=== PATIENT | female | born 1990 | race Hispanic/Latino ===

== ENCOUNTER 2017-04-07 16:33 | Emergency (ER) | payer MEDICAID, OTHER | END 2017-04-07 19:38 | disposition home or self-care (01) | LOC: EDH 16:33 | DX: R07.89 Other chest pain (principal); T50.995A Adverse effect of other drugs, medicaments and biological substances, initial encounter; Y92.89 Other specified places as the place of occurrence of the external cause | CPT/HCPCS: 71045; 81025; 82948; 93005 ==

== ENCOUNTER 2018-01-17 09:01 | Emergency (ER) | payer MEDICAID, OTHER ==
[2018-01-17 10:00] LABS: APPEARANCE,URINE Clear (CLEAR); BILIRUBIN,URINE Negative (NEGATIVE); COLOR,URINE Yellow (YELLOW); GLUCOSE, URINE (UA) Negative (NEGATIVE); KETONES,URINE Negative (NEGATIVE); LEUKOCYTE ESTERASE ,URINE Negative (NEGATIVE); NITRATE,URINE Negative (NEGATIVE); OCCULT BLOOD,URINE Moderate (NEGATIVE); PH,URINE 5.5 (5.0-8.0); PROTEIN,URINE Negative (NEGATIVE); UROBILINOGEN,URINE 0.2 mg/dL (0.2-1.0)
[2018-01-17 10:04] LABS: BASOPHILS % (AUTO) 1.3 % (0.0-5.0); EOSINOPHILS % (AUTO) 1.4 % (0.0-8.0); HEMATOCRIT 43.2 % (36-48); LYMPHOCYTES % (AUTO) 27.9 % (21.0-51.0); MEAN CORPUSCULAR HEMOGLOBIN 29.1 pg (27.0-33.0); MEAN CORPUSCULAR HGB CONC 32.6 g/dL (32.0-36.0); MEAN CORPUSCULAR VOLUME 89.2 fL (79-99); MONOCYTES % (AUTO) 4.8 % (3.0-13.0); NEUTROPHILS % (AUTO) 64.6 % (40.0-77.0); PLATELET COUNT (AUTO) 268 K/uL (130-400); RED BLOOD CELL COUNT(AUTO) 4.84 MIL/uL (4.00-5.50); RED CELL DISTRIBUTION WIDTH 12.7 % (11.0-15.5); WHITE BLOOD COUNT (AUTO) 8.3 K/uL (4.8-10.8)
[2018-01-17 10:05] LABS: HCG,QUAL RESULT NEGATIVE (NEGATIVE)
[2018-01-17 10:09] LABS: AMPHET/METH SCREEN,URINE NEGATIVE (NEGATIVE); BARBITURATE SCREEN, URINE NEGATIVE (NEGATIVE); BENZODIAZEPINES SCREEN,URINE NEGATIVE (NEGATIVE); CANNABINOID SCREEN,URINE NEGATIVE (NEGATIVE); COCAINE SCREEN,URINE NEGATIVE (NEGATIVE); OPIATE SCREEN,URINE NEGATIVE (NEGATIVE); PHENCYCLIDINE SCREEN,URINE NEGATIVE (NEGATIVE)
[2018-01-17 10:14] LABS: CREATININE 0.8 mg/dL (0.5-1.5)
[2018-01-17 10:19] LABS: ALBUMIN 3.8 g/dL (3.5-5.0); BILIRUBIN,TOTAL 0.3 mg/dL (0.2-1.0); TOTAL PROTEIN, SERUM 7.1 g/dL (6.0-8.3)
[2018-01-17 10:23] LABS: BACTERIA,URINE None Seen /HPF (None Seen); RBC,URINE 0-1 /HPF (0-1); SQUAMOUS EPITHELIAL CELL,UR 0-2 /HPF (0-2); WBC,URINE None Seen /HPF (0-1)
[2018-01-17] MEDS ORDERED: METOCLOPRAMIDE 10 MG/2 ML VIAL ONE (10:35)
[2018-01-17] MEDS ORDERED: DiphenhydrAMINE HCL 50 MG/ML VIAL ONE (10:35)
[2018-01-17] MEDS ORDERED: KETOROLAC TROMETHAMINE 15MG/ML ONE (10:36)
== END 2018-01-17 11:41 | disposition home or self-care (01) ==
LOC: EDH 09:01
DX: G43.109 Migraine with aura, not intractable, without status migrainosus (principal); E11.9 Type 2 diabetes mellitus without complications
CPT/HCPCS: 36415; 80053; 80305; 81001; 81025; 85025; 96374; 96375; 99283; J1200; J1885; J2765

== ENCOUNTER 2019-07-17 12:53 | Emergency (ER) | payer MEDICAID, OTHER ==
[2019-07-17 13:21] LABS: BASOPHILS % (AUTO) 0.5 % (0.0-5.0); EOSINOPHILS % (AUTO) 1.4 % (0.0-8.0); HEMATOCRIT 41.5 % (36-48); LYMPHOCYTES % (AUTO) 26.5 % (21.0-51.0); MEAN CORPUSCULAR HEMOGLOBIN 28.5 pg (27.0-33.0); MEAN CORPUSCULAR HGB CONC 32.8 g/dL (32.0-36.0); MONOCYTES % (AUTO) 5.3 % (3.0-13.0); NEUTROPHILS % (AUTO) 65.9 % (40.0-77.0); PLATELET COUNT (AUTO) 315 K/uL (130-400); RED BLOOD CELL COUNT(AUTO) 4.77 MIL/uL (4.00-5.50); RED CELL DISTRIBUTION WIDTH 12.8 % (11.0-15.5); WHITE BLOOD COUNT (AUTO) 9.7 K/uL (4.8-10.8)
[2019-07-17 13:22] LABS: APPEARANCE,URINE Clear (CLEAR); BILIRUBIN,URINE Negative (NEGATIVE); COLOR,URINE Yellow (YELLOW); GLUCOSE, URINE (UA) >=1000 mg/dL (NEGATIVE); KETONES,URINE Negative (NEGATIVE); LEUKOCYTE ESTERASE ,URINE Negative (NEGATIVE); NITRATE,URINE Negative (NEGATIVE); OCCULT BLOOD,URINE Large (NEGATIVE); PROTEIN,URINE Negative (NEGATIVE)
[2019-07-17 13:26] LABS: BACTERIA,URINE Rare /HPF (None Seen); SQUAMOUS EPITHELIAL CELL,UR Moderate /HPF (0-2); WBC,URINE 0-1 /HPF (0-1)
[2019-07-17 13:29] LABS: CREATININE 0.7 mg/dL (0.5-1.5); POTASSIUM 3.6 mmol/L (3.5-5.1)
[2019-07-17 13:39] LABS: ALBUMIN 3.2 g/dL (3.5-5.0); BILIRUBIN,TOTAL 0.6 mg/dL (0.2-1.0); TOTAL PROTEIN, SERUM 6.9 g/dL (6.0-8.3)
== END 2019-07-17 15:21 | disposition home or self-care (01) ==
LOC: EDH 12:53
DX: O20.0 Threatened abortion (principal); E11.9 Type 2 diabetes mellitus without complications; Z3A.01 Less than 8 weeks gestation of pregnancy
CPT/HCPCS: 36415; 80053; 81001; 84702; 85025

== ENCOUNTER 2022-12-22 01:26 | Emergency (ER) | payer MEDICAID, OTHER ==
[~2022-12-22] VITALS: Ht 154.9 cm; Wt 88.0 kg
[2022-12-22 01:27] VITALS: BP 118/74; PULSE 66; RESP 18; O2SAT 100
[2022-12-22 01:56] LABS: BASOPHILS # (AUTO) 0.06 K/uL (0.00-0.20); BASOPHILS % (AUTO) 0.5 % (0.0-5.0); EOSINOPHILS # (AUTO) 0.16 K/uL (0.00-0.70); EOSINOPHILS % (AUTO) 1.2 % (0.0-8.0); HEMATOCRIT 45.2 % (36-48); IMMATURE GRANULOCYTE ABSOLUTE 0.04 K/uL (0-1); LYMPHOCYTES # (AUTO) 3.8 K/uL (1.0-4.8); MEAN CORPUSCULAR HEMOGLOBIN 28.2 pg (27.0-33.0); MEAN CORPUSCULAR HGB CONC 32.3 g/dL (32.0-36.0); MEAN CORPUSCULAR VOLUME 87.3 fL (79-99); MONOCYTES # (AUTO) 0.8 K/uL (0.1-1.0); MONOCYTES % (AUTO) 6.3 % (3.0-13.0); NEUTROPHILS # (AUTO) 8.1 K/uL (1.8-7.7); NEUTROPHILS % (AUTO) 62.7 % (40.0-77.0); PLATELET COUNT (AUTO) 365 K/uL (130-400); RED BLOOD CELL COUNT(AUTO) 5.18 MIL/uL (4.00-5.50); RED CELL DISTRIBUTION WIDTH 13.2 % (11.0-15.5); WHITE BLOOD COUNT (AUTO) 12.9 K/uL (4.8-10.8)
[2022-12-22 01:59] LABS: APPEARANCE,URINE CLEAR (CLEAR); BILIRUBIN,URINE NEGATIVE (NEGATIVE); COLOR,URINE COLORLESS (YELLOW); GLUCOSE, URINE (UA) >=1000 mg/dL (NEGATIVE); KETONES,URINE NEGATIVE (NEGATIVE); LEUKOCYTE ESTERASE ,URINE NEGATIVE Leu/uL (NEGATIVE); NITRATE,URINE NEGATIVE (NEGATIVE); OCCULT BLOOD,URINE NEGATIVE (NEGATIVE); PH,URINE 5.5 (5.0-8.0); PROTEIN,URINE NEGATIVE (NEGATIVE); UROBILINOGEN,URINE 0.2 mg/dL (0.2-1.0)
[2022-12-22 02:04] LABS: ADD UA MICROSCOPIC YES
[2022-12-22 02:04] LABS: CREATININE 0.7 mg/dL (0.5-1.5); POTASSIUM 3.9 mmol/L (3.5-5.1)
[2022-12-22 02:05] LABS: SQUAMOUS EPITHELIAL CELL,UR RARE /HPF (0-2); WBC,URINE 0-1 /HPF (0-1)
[2022-12-22 02:09] LABS: ALBUMIN 3.5 g/dL (3.5-5.0); BILIRUBIN,TOTAL 0.4 mg/dL (0.2-1.0); TOTAL PROTEIN, SERUM 7.4 g/dL (6.0-8.3)
[2022-12-22] MEDS ORDERED: HYDROCODONE/ACETAMINOPHEN 5/325 MG TAB PO ONE (03:30)
== END 2022-12-22 06:57 | disposition home or self-care (01) ==
LOC: EDH 01:26
DX: R10.30 Lower abdominal pain, unspecified (principal); R10.2 Pelvic and perineal pain; E11.9 Type 2 diabetes mellitus without complications
CPT/HCPCS: 36415; 76857; 80053; 81001; 81025; 83690; 85025

== ENCOUNTER 2023-04-22 20:10 | Emergency (ER) | payer OTHER ==
[~2023-04-22] VITALS: Ht 154.9 cm; Wt 86.0 kg
[2023-04-22 22:52] LABS: BASOPHILS # (AUTO) 0.03 K/uL (0.00-0.20); BASOPHILS % (AUTO) 0.2 % (0.0-5.0); EOSINOPHILS # (AUTO) 0.14 K/uL (0.00-0.70); HEMATOCRIT 40.2 % (36-48); IMMATURE GRANULOCYTE ABSOLUTE 0.05 K/uL (0-1); LYMPHOCYTES # (AUTO) 3.4 K/uL (1.0-4.8); LYMPHOCYTES % (AUTO) 24.5 % (21.0-51.0); MEAN CORPUSCULAR HEMOGLOBIN 28.6 pg (27.0-33.0); MEAN CORPUSCULAR HGB CONC 32.8 g/dL (32.0-36.0); MEAN CORPUSCULAR VOLUME 87.2 fL (79-99); MONOCYTES # (AUTO) 0.9 K/uL (0.1-1.0); MONOCYTES % (AUTO) 6.2 % (3.0-13.0); NEUTROPHILS # (AUTO) 9.3 K/uL (1.8-7.7); NEUTROPHILS % (AUTO) 67.7 % (40.0-77.0); PLATELET COUNT (AUTO) 355 K/uL (130-400); RED BLOOD CELL COUNT(AUTO) 4.61 MIL/uL (4.00-5.50); RED CELL DISTRIBUTION WIDTH 13.5 % (11.0-15.5); WHITE BLOOD COUNT (AUTO) 13.7 K/uL (4.8-10.8)
[2023-04-22 23:07] LABS: CREATININE 0.7 mg/dL (0.5-1.5); POTASSIUM 3.5 mmol/L (3.5-5.1)
[2023-04-23 00:06] VITALS: BP 106/69; PULSE 70; RESP 20; O2SAT 100
[2023-04-23] MEDS ORDERED: ACET-66 PO (00:27)
== END 2023-04-23 00:38 | disposition home or self-care (01) ==
LOC: EDH 20:10
DX: O20.9 Hemorrhage in early pregnancy, unspecified (principal); O9A.211 Injury, poisoning and certain other consequences of external causes complicating pregnancy, first trimester; S30.0XXA Contusion of lower back and pelvis, initial encounter; E11.9 Type 2 diabetes mellitus without complications; Z3A.01 Less than 8 weeks gestation of pregnancy
CPT/HCPCS: 36415; 76801; 80048; 84702; 85025; 86900; 86901

== ENCOUNTER 2024-08-20 19:28 | Emergency (ER) | payer SELFPAY ==
[~2024-08-20] VITALS: Ht 157.5 cm; Wt 83.5 kg
[~2024-08-20 19:28] MED LIST: ACET-66 PO
--- NOTE | 2024-08-20 20:17 | NUR ---
CHEST PAIN STARTED AT 1700 WITH PAIN FEELING LIKE PRESSURE RADIATING TO L ARM. PT ALSO HAVING NIETO. HX OF DM. PT VOICED SHE WAS LAYING DOWN WHEN PAIN STARTED.
[2024-08-20 20:19] LABS: IMMATURE GRANULOCYTE ABSOLUTE 0.04 K/uL (0-1); NUCLEATED RED BLOOD CELLS 0.0 % (0.0-0.19); PLATELET COUNT (AUTO) 329 K/uL (130-400); RED BLOOD CELL COUNT(AUTO) 4.45 MIL/uL (4.00-5.50); RED CELL DISTRIBUTION WIDTH 13.7 % (11.0-15.5); WHITE BLOOD COUNT (AUTO) 9.6 K/uL (4.8-10.8)
--- NOTE | 2024-08-20 20:25 | ERN ---
ED Note History of Present Illness Stated Complaint: GENERALIZED BODY PAIN Chief Complaint: Headache Time Seen by MD: 19:45 Time Seen by Midlevel: 19:55 Dictation: Ms. Laron pradhan a 34 year old female with history of obesity and type II DM who wanted to the emergency department with generalized weakness, left arm pain, headache, fatigue, and general weakness. She states symptoms began at approximately 5:00 p.m.. She states her blood glucose levels have been well controlled. She is currently taking only Janumet. She denies fall/trauma. She denies ill contacts or recent travel. 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 Reports fatigue and general weakness EYES: Patient denies any visual symptoms. EARS, NOSE, AND THROAT: No difficulties with hearing. No symptoms of rhinitis or sore throat. CARDIOVASCULAR: Patient denies chest pains, palpitations, orthopnea and paroxysmal nocturnal dyspnea. RESPIRATORY: No dyspnea on exertion, no wheezing or cough. GI: No nausea, vomiting, diarrhea, constipation, abdominal pain, hematochezia or melena. : No urinary hesitancy or dribbling. No nocturia or urinary frequency. No abnormal urethral discharge. MUSCULOSKELETAL: Reports body aches/left arm pain. NEUROLOGIC: No seizures. Patient denies numbness, tingling or weakness. Reports headache the whole head . PSYCHIATRIC: Patient denies problems with mood disturbance. No problems with anxiety. ENDOCRINE: No excessive urination or excessive thirst. DERMATOLOGIC: Patient denies any rashes or skin changes. Initial Vital Sign VS Vital Signs Date Time Temp Pulse Resp B/P (MAP) Pulse Ox O2 Delivery O2 Flow Rate FiO2 08/20/24 19:39 98.1 99 20 117/76 97 Room Air 08/20/24 20:04 0 21 Physical Exam Dictation Vital signs: Reviewed. Afebrile Constitutional: Tearful. Uncomfortable. Head/Face: Normocephalic, atraumatic. Eyes: Periorbital areas with no swelling, redness, or edema. Lids and lashes are normal. Conjunctival injection is absent. Sclera anicteric. Pupils equal, round, reactive to light. ENT: Pinnas intact and no signs of trauma or erythema. Ear canals clear and no discharge. TMs no erythema. No nasal discharge or bleeding noted. Oropharynx with no exudate, redness, swelling, masses, exudates, or evidence of obstruction. Uvula midline. Mucous membranes moist. Neck: Trachea midline, no masses palpated, and no cervical lymphadenopathy. No swelling. Supple, full range of motion. Chest/Axilla: No tenderness, no crepitus, no paradoxical movement, no retractions. Cardiovascular: Regular rate, regular rhythm, no murmur, no gallops. Symmetric pulses. No peripheral edema. Normotensive; BP 117/76 Respiratory: Respirations even and unlabored. Lung sounds clear; no wheezes, rales or rhonchi. Room air SpO2 97% Gastrointestinal: Inspection is normal. No distention is appreciated. Bowel sounds are normal. No mass or organomegaly . There is no tenderness. No rebound. No rigidity. No voluntary or involuntary guarding. No Izaguirre's sign. Neurological: Normal speech, gross motor function intact, gross sensory function intact. No focal weakness/Paresthesia. Musculoskeletal/Extremities: All extremities have full range of motion, no pain or tenderness on palpation. Symmetric pulses. She has good color, warmth, movement, and sensation to left fingers. Capillary refill is brisk. Integumentary: Intact. Skin is normal color, warm and dry. Cap refill less than 2 seconds. Results (Laboratory/Radiology) Laboratory/Radiology Laboratory Tests Test 08/20/24 20:09 08/20/24 20:11 Urine Color LIGHT-YELLOW (YELLOW) Urine Appearance CLEAR (CLEAR) Urine pH 5.0 (5.0-8.0) Urine Specific [place] 1.031 (1.001-1.031) Urine Protein NEGATIVE mg/dL (NEGATIVE) Urine Glucose (UA) >=1000 mg/dL (NEGATIVE) H Urine Ketones NEGATIVE mg/dL (NEGATIVE) Urine Occult Blood NEGATIVE (NEGATIVE) Urine Nitrate NEGATIVE (NEGATIVE) Urine Bilirubin NEGATIVE mg/dL (NEGATIVE) Urine Urobilinogen 0.2 mg/dL (0.2-1.0) Urine Leukocyte Esterase 25 Ananda/uL (NEGATIVE) H Urine RBC 2-5 /HPF (0-1) H Urine WBC 6-10 /HPF (0-1) H Urine Squamous Epithelial Cells FEW /HPF (0-2) Urine Bacteria RARE /HPF (None Seen) Urine HCG, Qualitative NEGATIVE (NEGATIVE) Influenza Type A Antigen Negative For Type A Influenza Type B Antigen Negative For Type B SARS-CoV-2, RNA, NAAT NEGATIVE SARS CoV-2 White Blood Count 9.6 K/uL (4.8-10.8) Red Blood Count 4.45 MIL/uL (4.00-5.50) Hemoglobin 12.9 g/dL (12.0-16.0) Hematocrit 39.7 % (36-48) Mean Corpuscular Volume 89.2 fL (79-99) Mean Corpuscular Hemoglobin 29.0 pg (27.0-33.0) Mean Corpuscular Hemoglobin Concent 32.5 g/dL (32.0-36.0) Red Cell Distribution Width 13.7 % (11.0-15.5) Platelet Count 329 K/uL (130-400) Mean Platelet Volume 10.1 fL (7.5-10.5) Immature Granulocyte % (Auto) 0.4 % (0-1) Neutrophils (%) (Auto) 67.2 % (40.0-77.0) Lymphocytes (%) (Auto) 24.5 % (21.0-51.0) Monocytes (%) (Auto) 6.1 % (3.0-13.0) Eosinophils (%) (Auto) 1.3 % (0.0-8.0) Basophils (%) (Auto) 0.5 % (0.0-5.0) Neutrophils # (Auto) 6.4 K/uL (1.8-7.7) Lymphocytes # (Auto) 2.3 K/uL (1.0-4.8) Monocytes # (Auto) 0.6 K/uL (0.1-1.0) Eosinophils # (Auto) 0.12 K/uL (0.00-0.70) Basophils # (Auto) 0.05 K/uL (0.00-0.20) Absolute Immature Granulocyte (auto 0.04 K/uL (0-1) Nucleated Red Blood Cells 0.0 % (0.0-0.19) Sodium Level 141 mmol/L (136-145) Potassium Level 4.6 mmol/L (3.5-5.1) Chloride Level 105 mmol/L (101-111) Carbon Dioxide Level 29 mmol/L (21-32) Blood Urea Nitrogen 16 mg/dL (7-18) Creatinine 0.8 mg/dL (0.5-1.0) Glomerular Filtration Rate Calc 98 mL/min (>90) Random Glucose 267 mg/dL (70-105) H Total Calcium 9.0 mg/dL (8.5-10.1) Troponin I High Sensitivity < 4 ng/L (4-50) L Labs Reviewed?: Yes X-RAY Comment: PATIENT: KESHIA BAKER MR#: [id number] : 1990 SEX: F AGE: 34 LOCATION: [facility] ORDER 03 STATUS: REG ER REPORT#: [id number] SERVICE 02 REASON: chest pain ORDERING PHYSICIAN: ANTONIA PEPE NP PROCEDURE: CXR2VW - CHEST 2VWS EXAM: CR Chest, 2 views. CLINICAL HISTORY: Chest pain. COMPARISON: Chest radiograph dated 04/07/2017. FINDINGS: The lungs show no infiltrates or other acute findings. No pleural effusion or pneumothorax. The cardiomediastinal silhouette is within normal limits. Age-indeterminate compression fracture of the T10 and T11 vertebral bodies with mildly increased thoracic kyphosis. IMPRESSION: No acute cardiopulmonary process is evident. Age-indeterminate compression fracture of the T10 and T11 vertebral bodies with mildly increased thoracic kyphosis; this cannot be compared with the previous AP view of the chest. Further evaluation with MRI thoracic spine may be done if clinically warranted. /[place] DICTATED BY: EGRSON MORALES Jr., MD DATE: 08/20/242237 ELECTRONICALLY SIGNED BY: GERSON MORALES Jr., MD DATE: 08/20/242237 ED Course ED Course Orders Procedure Category Date Status Time 12 Lead Ekg Tracing- EKG 08/20/24 Logged Technical 19:56 Chest 2vws RAD 08/20/24 Resulted 20:03 Influenza Type A & B, LAB 08/20/24 Complete Rapid 20:03 Covid Rna Naat LAB 08/20/24 Complete 20:03 Cbc With Differential LAB 08/20/24 Complete 20:04 Basic Metabolic Panel LAB 08/20/24 Complete 20:04 Troponin I High LAB 08/20/24 Complete Sensitivity 20:04 ,Urine Test LAB 08/20/24 Complete 20:04 Urinalysis Profile LAB 08/20/24 Complete 20:04 Culture Urine KRISTYN 08/20/24 In Process 20:48 0.9%Nacl 1000ml (Ns PHA 08/20/24 Complete 1000ml) 21:30 Ceftriaxone 1g Vial PHA 08/20/24 Complete (Rocephine 1g Inj) 21:30 Hydromorphone 0.5mg PHA 08/20/24 Complete Syg (Dilaudid 0.5mg 21:30 Ondansetron 4mg Inj PHA 08/20/24 Complete (Zofran 4mg Inj) 21:30 Current Medications Medications (Trade) Dose Ordered Sig/Daniela Route PRN Reason Start Time Stop Time Status Last Admin Dose Admin Ceftriaxone Sodium (ROCEphine 1G INJ) 1 gm ONCE ONCE IVPB 08/20/24 21:30 08/20/24 21:31 DC 08/20/24 21:32 Hydromorphone HCl (DiLAUDid 0.5MG INJ) 0.5 mg ONCE ONCE IVP 08/20/24 21:30 08/20/24 21:31 DC 08/20/24 21:33 Ondansetron HCl (zoFRAN 4MG INJ) 4 mg ONCE ONCE IVP 08/20/24 21:30 08/20/24 21:31 DC 08/20/24 21:33 Sodium Chloride 1,000 ml @ 0 mls/hr ONCE ONCE IV 08/20/24 21:30 08/20/24 21:31 DC 08/20/24 21:32 Vital Signs Date Time Temp Pulse Resp B/P (MAP) Pulse Ox O2 Delivery O2 Flow Rate FiO2 08/20/24 21:41 98.1 76 18 108/67 99 Room Air* 0 21 08/20/24 20:04 78 20 92/59 100 Room Air* 0 21 08/20/24 19:39 98.1 99 20 117/76 97 Room Air Uneventful ED course. Vital signs stable; afebrile and normotensive with room air SpO2 97 to 99%. Chest x-ray unremarkable with clear lung sinclair. Laboratory findings as noted below. Influenza a/B and COVID are negative. There is no elevation of WBCs. H&H are stable. Glucose 267. Troponin negative. HCG negative. UA positive for glucose, leukocyte esterase, blood, and UWBC 6-10 . UCX pending. While in the ED she received doses Zofran, Dilaudid, Rocephin, and NS 1000 mL IV as bolus. Medical Decision Making MDM MDM: Differential diagnosis: UTI, influenza, COVID, CAP Rationale: Tests considered and ordered secondary to shared decision making include: Lab, x-ray Previous outside records reviewed: Old ER visits. Risk of complication and/or morbidity or mortality of patient management: None Medications-Per medication reconciliation Need for hospitalization: Patient does not meet criteria for hospitalization. Need for emergency major/minor surgery: No There are no social concerns with this patient. Prescription drug management: Nitrofurantoin, ibuprofen Prescriptions will include symptomatic care Patient's prior external medical records from other ER visits were reviewed by me as indicated. Prior testing and results from previous visits were reviewed. Prior tests were taken into account with medical decision making and resource utilization, independent historian/historians were used to obtain complete medical history. I independently interpreted the test that were performed, results were reviewed by me and considered findings on radiology if ordered. Medical management and examination interpretation discussions were had by me with other qualified healthcare professionals as indicated for the patient's care. DX & DISP Disposition: Discharge Departure Impression: Primary Impression: UTI (urinary tract infection) Additional Impression: Myalgia Condition: Stable Scripts Ibuprofen (Ibuprofen) 600 Mg Tablet 600 MG PO Q6H PRN for PAIN, #12 TAB 0 Refills Prov: ANTONIA PEPE NP 08/20/24 Nitrofurantoin Macrocrystal (Nitrofurantoin) 100 Mg Capsule 1 CAP PO BID for 5 Days, #10 CAP 0 Refills Prov: ANTONIA PEPE NP 08/20/24 Additional Instructions: Rest. Drink plenty of fluids. Start nitrofurantoin twice daily for 5 days; take until gone. May take ibuprofen every 6 hours as needed for discomfort or [id number] Tylenol. Follow up with your primary care physician in the next week. Return to the emergency department for any worsening of symptoms or concerns. Referrals: SELF,REFERRAL (PCP) Time of Disposition: 22:15 ANTONIA PEPE NP Aug 20, 2024 20:25
[2024-08-20 20:28] LABS: CREATININE 0.8 mg/dL (0.5-1.0); GLOMERULAR FILTR. RATE CALC 98.0 mL/min (>90); GLUCOSE,RANDOM 267.0 mg/dL (70-105); SODIUM SERUM 141.0 mmol/L (136-145); UREA NITROGEN, BLOOD 16.0 mg/dL (7-18)
[2024-08-20 20:42] LABS: HCG,QUALITATIVE URINE NEGATIVE (NEGATIVE)
[2024-08-20 20:43] LABS: APPEARANCE,URINE CLEAR (CLEAR); GLUCOSE, URINE (UA) >=1000 mg/dL (NEGATIVE); LEUKOCYTE ESTERASE ,URINE 25 Leu/uL (NEGATIVE); NITRATE,URINE NEGATIVE (NEGATIVE); OCCULT BLOOD,URINE NEGATIVE (NEGATIVE)
[2024-08-20 20:45] LABS: ADD UA MICROSCOPIC YES
[2024-08-20 20:46] LABS: SQUAMOUS EPITHELIAL CELL,UR FEW /HPF (0-2)
[2024-08-20 20:50] LABS: SARS-CoV-2, RNA, NAAT NEGATIVE SARS CoV-2 (NEGATIVE)
[2024-08-20 20:58] LABS: INFLUENZA TYPE A Negative For Type A (NEGATIVE); INFLUENZA TYPE B Negative For Type B (NEGATIVE)
[2024-08-20] MEDS: 0.9%NACL 1000ML 1,000 ML IV ONE (21:32)
--- NOTE | 2024-08-20 21:39 | HMCIMG ---
EXAM: CR Chest, 2 views. CLINICAL HISTORY: Chest pain. COMPARISON: Chest radiograph dated 04/07/2017. FINDINGS: The lungs show no infiltrates or other acute findings. No pleural effusion or pneumothorax. The cardiomediastinal silhouette is within normal limits. Age-indeterminate compression fracture of the T10 and T11 vertebral bodies with mildly increased thoracic kyphosis. IMPRESSION: No acute cardiopulmonary process is evident. Age-indeterminate compression fracture of the T10 and T11 vertebral bodies with mildly increased thoracic kyphosis; this cannot be compared with the previous AP view of the chest. Further evaluation with MRI thoracic spine may be done if clinically warranted. /[place]
[2024-08-20 21:41] VITALS: TEMP 98.1
[2024-08-20] MEDS ORDERED: NITR100C PO (22:14)
[2024-08-20] MEDS ORDERED: IBUP-2070 PO (22:14)
[2024-08-20 22:49] VITALS: BP 101/73; PULSE 71; RESP 18; O2SAT 99
--- NOTE | 2024-08-21 06:36 | EKG ---
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
== END 2024-08-20 22:54 | disposition home or self-care (01) ==
LOC: EDH 19:28
DX: N39.0 Urinary tract infection, site not specified (principal); M79.10 Myalgia, unspecified site; E11.9 Type 2 diabetes mellitus without complications; Z20.822 Contact with and (suspected) exposure to COVID-19
CPT/HCPCS: 99285; 96365; 96375; 71046; 87635; 84484; 80048; 85025; 87086 ×2; 87186; 87804 ×2; 81001; 81025; 36415; 93005; J7030; J0696; J2405; J1171

== ENCOUNTER 2025-02-08 19:35 | Emergency (ER) | payer SELFPAY ==
[~2025-02-08] VITALS: Ht 154.9 cm; Wt 83.0 kg
[~2025-02-08 19:35] MED LIST changes: +IBUP-1492 PO; +NITR100C PO
--- NOTE | 2025-02-08 20:08 | NUR ---
UA CUP PROVIDED
--- NOTE | 2025-02-08 20:09 | NUR ---
EKG HANDED TO DR PAZ
--- NOTE | 2025-02-08 20:10 | EKG ---
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
[2025-02-08 20:53] LABS: IMMATURE GRANULOCYTE ABSOLUTE 0.05 K/uL (0-1); NUCLEATED RED BLOOD CELLS 0.0 % (0.0-0.19); PLATELET COUNT (AUTO) 316 K/uL (130-400); RED BLOOD CELL COUNT(AUTO) 5.33 MIL/uL (4.00-5.50); RED CELL DISTRIBUTION WIDTH 12.4 % (11.0-15.5); WHITE BLOOD COUNT (AUTO) 10.2 K/uL (4.8-10.8)
[2025-02-08 21:00] LABS: CREATININE 1.1 mg/dL (0.5-1.0); GLOMERULAR FILTR. RATE CALC 67.0 mL/min (>90); GLUCOSE,RANDOM 281.0 mg/dL (70-105); SODIUM SERUM 134.0 mmol/L (136-145); UREA NITROGEN, BLOOD 16.0 mg/dL (7-18)
[2025-02-08 21:10] LABS: CREATINE KINASE, TOTAL 105.0 U/L (21-232)
--- NOTE | 2025-02-08 21:31 | ERN ---
ED Note History of Present Illness Stated Complaint: CHEST PAIN SOB Chief Complaint: Chest Pain Time Seen by MD: 20:07 Time Seen by Midlevel: 20:07 Dictation: The patient is a 34-year-old female with a history of diabetes on who presents to the emergency department with complaints of left-sided chest pain associated with shortness of breath and some sore throat onset 4:00 p.m.. Patient denies any cough or congestion, denies any fevers. Reports pain as pressure. Denies any recent travel. Allergies: Coded Allergies: No Known Drug Allergies (Unverified Allergy, Unknown, 07/17/19) Home Meds Active Scripts Penicillin V Potassium (Penicillin V Potassium) 500 Mg Tablet, 1 TAB PO TID for 10 Days, #30 TAB 0 Refills Prov:LUKEEVA BACK GRINDER 02/08/25 Ibuprofen (Ibuprofen) 600 Mg Tablet, 600 MG PO Q6H PRN for PAIN, #12 TAB 0 Refills Prov:ANTONIA PEPE [facility] 08/20/24 Nitrofurantoin Macrocrystal (Nitrofurantoin) 100 Mg Capsule, 1 CAP PO BID for 5 Days, #10 CAP 0 Refills Prov:ANTONIA PEPE BACK GRINDER 08/20/24 Acetaminophen (Acetaminophen) 500 Mg Tablet, 500 MG PO Q4PRN for 5 Days, #15 TAB Prov:PARVIN BRUCE 04/23/23 Past Medical History Past Medical History: Diabetes-Type II Surgical History: None Social History: Negative, Lives with family LMP: Dec 29, 2024 : 7 Para: 4 Aborts: 3 RN Note Reviewed/Agreed w/PFSH: Yes Review of System Dictation Constitutional: Negative for fever,chills, and weight loss Eyes: Negative for injury, pain,redness, and discharge ENT: Negative for injury,pain or swelling Cardiovascular: Negative for , palpitations, and edema positive for chest pain Respiratory: Negative for cough, and wheezing, positive for shortness of breath Abdomen/GI: Negative for abdominal pain, nausea, vomiting, diarrhea, and constipation Back: Negative for injury and pain : Negative for injury, bleeding and discharge MS/Extremity: Negative for injury and deformity Skin: Negative for rash, and discoloration Neuro: Negative for headache, weakness, numbness, tingling, and seizure Psych: Negative for suicide ideation, homicidal ideation, and hallucinations Initial Vital Sign VS Vital Signs Date Time Temp Pulse Resp B/P (MAP) Pulse Ox O2 Delivery O2 Flow Rate FiO2 02/08/25 20:03 97.3 98 20 142/79 100 Room Air 02/08/25 21:56 0 21 Physical Exam Dictation Vital Signs reviewed General Appearance: Alert, oriented x 3, no acute distress, well developed, nourished. Head and Face: non-traumatic. Eyes: PERRL, pink conjunctivas, eyelid no trauma, anterior chamber with arcus senilis. Ears: Pinnas intact and no signs of trauma or erythema ear canals clear and no discharge TM no erythema Nose: No discharge, no bleeding. Oropharynx: Mouth normal, tongue pink. pharynx clear,no erythema, tonsils no exudates, no abscesses noted, mucous membrane moist Neck: Supple, non-tender, no thyromegaly, no masses, no JVD, no bruits Breast:Deferred Chest:No tenderness, no crepitus, no paradoxical movement, no retractions Lungs:Clear, well-ventilated, symmetric, no rales, no wheezing, no rhonchi, no stridor, good breath sounds bilaterally Heart: Regular rate, regular rhythm, no murmur, no gallops Vascular: no peripheral edema, Abdomen: Soft, positive bowel sounds, nondistended, no guarding, nontender, no rebound, no masses no hepatomegaly, no splenomegaly, no Izaguirre's sign, no hernias. Rectal: Deferred Genital: Deferred Neurological: Normal speech, motor function intact, sensory function intact Musculoskeletal: Neck nontender, full range of motion, back nontender, full range of motion, Extremities: nontender, full range of motion Skin: Color pink, dry, no turgor, no rash, no lacerations, no abrasions, no contusions. Lymphatic: Deferred Results (Laboratory/Radiology) Laboratory/Radiology Laboratory Tests Test 02/08/25 20:23 02/08/25 21:32 02/08/25 21:49 02/08/25 22:00 White Blood Count 10.2 K/uL (4.8-10.8) Red Blood Count 5.33 MIL/uL (4.00-5.50) Hemoglobin 15.5 g/dL (12.0-16.0) Hematocrit 45.8 % (36-48) Mean Corpuscular Volume 85.9 fL (79-99) Mean Corpuscular Hemoglobin 29.1 pg (27.0-33.0) Mean Corpuscular Hemoglobin Concent 33.8 g/dL (32.0-36.0) Red Cell Distribution Width 12.4 % (11.0-15.5) Platelet Count 316 K/uL (130-400) Mean Platelet Volume 11.1 fL (7.5-10.5) H Immature Granulocyte % (Auto) 0.5 % (0-1) Neutrophils (%) (Auto) 62.6 % (40.0-77.0) Lymphocytes (%) (Auto) 28.5 % (21.0-51.0) Monocytes (%) (Auto) 7.0 % (3.0-13.0) Eosinophils (%) (Auto) 0.9 % (0.0-8.0) Basophils (%) (Auto) 0.5 % (0.0-5.0) Neutrophils # (Auto) 6.4 K/uL (1.8-7.7) Lymphocytes # (Auto) 2.9 K/uL (1.0-4.8) Monocytes # (Auto) 0.7 K/uL (0.1-1.0) Eosinophils # (Auto) 0.09 K/uL (0.00-0.70) Basophils # (Auto) 0.05 K/uL (0.00-0.20) Absolute Immature Granulocyte (auto 0.05 K/uL (0-1) Nucleated Red Blood Cells 0.0 % (0.0-0.19) Sodium Level 134 mmol/L (136-145) L Potassium Level 3.4 mmol/L (3.5-5.1) L Chloride Level 101 mmol/L (101-111) Carbon Dioxide Level 21 mmol/L (21-32) Blood Urea Nitrogen 16 mg/dL (7-18) Creatinine 1.1 mg/dL (0.5-1.0) H Glomerular Filtration Rate Calc 67 mL/min (>90) Random Glucose 281 mg/dL (70-105) H Total Calcium 9.2 mg/dL (8.5-10.1) Total Creatine Kinase 105 U/L (21-232) Troponin I High Sensitivity 4 ng/L (4-50) 4 ng/L (4-50) B-Type Natriuretic Peptide < 5 pg/mL (0-100) Influenza Type A Antigen Negative For Type A Influenza Type B Antigen Negative For Type B SARS-CoV-2 Antigen (Rapid) PRESUMPTIVE NEGATIVE Group A Streptococcus Rapid positive (NEGATIVE) *A Urine Color LIGHT-YELLOW (YELLOW) Urine Appearance CLEAR (CLEAR) Urine pH 7.5 (5.0-8.0) Urine Specific [place] 1.018 (1.001-1.031) Urine Protein NEGATIVE mg/dL (NEGATIVE) Urine Glucose (UA) >=1000 mg/dL (NEGATIVE) H Urine Ketones 20 mg/dL (NEGATIVE) H Urine Occult Blood NEGATIVE (NEGATIVE) Urine Nitrate NEGATIVE (NEGATIVE) Urine Bilirubin NEGATIVE mg/dL (NEGATIVE) Urine Urobilinogen 0.2 mg/dL (0.2-1.0) Urine Leukocyte Esterase NEGATIVE Ananda/uL Urine RBC 0-1 /HPF (0-1) Urine WBC 2-5 /HPF (0-1) H Urine Squamous Epithelial Cells RARE /HPF (0-2) Urine Bacteria RARE /HPF (None Seen) Urine HCG, Qualitative NEGATIVE (NEGATIVE) REASON: CHEST PAIN ORDERING PHYSICIAN: VILMA PAZ MD PROCEDURE: CXR1VW - CHEST 1VW EXAM: CR Chest, 1 View. CLINICAL HISTORY: CHEST PAIN COMPARISON: None provided. FINDINGS: LUNGS: There is no mass, infiltrate, or acute pulmonary abnormality. PLEURAL SPACES: No pleural effusion or pneumothorax. MEDIASTINUM: Cardiac size and mediastinal contours within normal limits. BONES: No acute osseous abnormality. IMPRESSION: No acute cardiopulmonary pathology is evident. /[facility] Labs Reviewed?: Yes EKG: (+) rhythm (Sinus rhythm) EKG Comment: Date:02/08/2025 Time:2006 Ventricular rate:79 VT interval:109 QRS duration:96 QT/QTc:425/488 EKG interpretation: Sinus rhythm Reviewed by ED Attending no STEMI ED Course ED Course Orders Procedure Category Date Status Time Vital Signs Per CPOE 02/08/25 Transmitted Routine 20:04 Chest 1vw RAD 02/08/25 Resulted 20:04 12 Lead Ekg Tracing- EKG 02/08/25 Complete Technical 20:04 Oxygen By Nc/Pulse Ox CPOE 02/08/25 Transmitted 20:04 Maintain Iv CPOE 02/08/25 Transmitted 20:04 Iv Insertion CPOE 02/08/25 Transmitted 20:04 Cardiac Monitoring CPOE 02/08/25 Transmitted 20:04 Pulse Oximetry With CPOE 02/08/25 Transmitted Vs And Prn 20:04 Cbc With Differential LAB 02/08/25 Complete 20:04 Activity: Br W/Brp CPOE 02/08/25 Transmitted With Assist 20:04 Creatine Kinase, Total LAB 02/08/25 Complete 20:04 Troponin I High LAB 02/08/25 Complete Sensitivity 20:04 Urinalysis Profile LAB 02/08/25 Complete 20:04 Basic Metabolic Panel LAB 02/08/25 Complete 20:04 ,Urine Test LAB 02/08/25 Complete 20:10 Covid19 (Sars Antigen LAB 02/08/25 Complete Rapid) 20:53 Influenza Type A & B, LAB 02/08/25 Complete Rapid 20:53 Rapid (Group A Strep) LAB 02/08/25 Complete 20:53 Troponin I High LAB 02/08/25 Complete Sensitivity 21:31 0.9%Nacl 1000ml (Ns PHA 02/08/25 Complete 1000ml) 22:00 Potassium Bicarb/Cit PHA 02/08/25 Complete Ac 25meq (K-Lyte Ta 22:00 Pantoprazole 40mg Inj PHA 02/08/25 Complete (Protonix 40mg Inj 22:00 B-Type Natriuretic LAB 02/08/25 Complete Peptide 22:05 Ceftriaxone 1g Vial PHA 02/08/25 Complete (Rocephine 1g Inj) 23:30 Current Medications Medications (Trade) Dose Ordered Sig/Daniela Route PRN Reason Start Time Stop Time Status Last Admin Dose Admin Ceftriaxone Sodium (ROCEphine 1G INJ) 1 gm ONCE ONCE IVPB 02/08/25 23:30 02/08/25 23:31 DC 02/08/25 23:29 Pantoprazole Sodium (PROTonix 40MG INJ) 40 mg ONCE ONCE IVP 02/08/25 22:00 02/08/25 22:01 DC 02/08/25 21:42 Potassium Bicarbonate (K-Lyte Tablet Eff 25 Meq Tablet.eff) 25 meq ONCE ONCE PO 02/08/25 22:00 02/08/25 22:01 DC 02/08/25 21:42 Sodium Chloride 1,000 ml @ 0 mls/hr ONCE ONCE IV 02/08/25 22:00 02/08/25 22:01 DC 02/08/25 21:42 Vital Signs Date Time Temp Pulse Resp B/P (MAP) Pulse Ox O2 Delivery O2 Flow Rate FiO2 02/08/25 21:56 62 19 118/72 100 Room Air* 0 21 02/08/25 20:03 97.3 98 20 142/79 100 Room Air HEART Score Response (Comments) Value History: Low suspicion (0) 0 EKG: Normal 0 Age: < 45yrs (0) 0 Risk Factors: 1-2 risk factors (+1) 1 Initial Troponin: Normal limit (0) 0 Total 1 Medical Decision Making MDM The patient is a 34-year-old female with a history of diabetes on who pr esents to the emergency department with complaints of left-sided chest pain associated with shortness of breath and some sore throat onset 4:00 p.m.. Patient denies any cough or congestion, denies any fevers. Reports pain as pressure. Denies any recent travel. CBC showed no leukocytosis, no anemia, chemistry showed mild elevated blood glucose, hyponatremia, hypokalemia, creatinine of 1.1. Normal troponin x2, normal BNP Urinalysis was unremarkable.. chest strength showed no acute pathology. Soft tested positive for strep. Patient will be treated with the antibiotics. Received IV fluids and Protonix in ER. Electrolytes were replaced. On physical exam patient is in no acute distress, nontoxic appearance, low risk for cardiac etiology. Some tenderness to palpation, chest. Patient appeared very anxious initially but has calm down. Patient with no tachycardia, no hypoxemia, no lower extremity swelling PERC rule 0. Patient will be discharged on antibiotics and instructed to follow up with PCP. Patient otherwise in no acute distress, nontoxic appearance, stable vital signs. Reports no longer having any chest pain. Differential diagnosis: ACS, costochondritis, upper respiratory infection, anxiety Need for hospitalization: Patient does not meet criteria for hospitalization. There are no social concerns with this patient. DX & DISP Disposition: Discharge Departure Impression: Primary Impression: Left-sided chest wall pain Additional Impressions: Anxiety, Strep throat Condition: Stable Scripts Penicillin V Potassium (Penicillin V Potassium) 500 Mg Tablet 1 TAB PO TID for 10 Days, #30 TAB 0 Refills Prov: EVA BUTLER BACK GRINDER 02/08/25 Additional Instructions: Your labs showed that you were slightly dehydrated and your blood glucose was slightly elevated. We gave you IV fluids for that. Your cardiac enzymes were normal. You did test positive for strep and he will be treated with the antibiotics. Please follow up with the primary doctor in 1-2 days. If anything worsens please return to ER. FOLLOW-UP WITH PRIMARY CARE PROVIDER IN 1 TO 2 DAYS. TAKE MEDICATIONS DIRECTED HERE IN THE EMERGENCY ROOM. OKAY TO CONTINUE HOME MEDICATIONS UNLESS OTHERWISE DISCUSSED DURING YOUR VISIT IN THE EMERGENCY ROOM TODAY. RETURN TO YOUR NEAREST EMERGENCY ROOM IF SYMPTOMS WORSEN OR IF THERE IS NO IMPROVEMENT. CALL 911 IF YOU NEED IMMEDIATE ASSISTANCE. TAKE TYLENOL [id number] NEEDED AND IF NO CONTRAINDICATIONS ARE PRESENT. INCREASE ORAL HYDRATION. A WOUND CULTURE OR URINE CULTURE WAS ORDERED HERE IN THE EMERGENCY ROOM DEPARTMENT PLEASE FOLLOW-UP WITH PRIMARY CARE PROVIDER AND ADVISE THEM TO GET REPEAT PORTS FROM OUR FACILITY. IF YOU HAD ANY THANG WRAP/SPLINTS THAT WERE APPLIED HERE, PLEASE DO NOT REMOVE THEM UNTIL YOU SEE YOUR PRIMARY CARE OR SPECIALTY. Referrals: NONE (PCP) Time of Disposition: 23:21 I have examined patient, & reviewed all documents, & agreed W/ the Diagnosis, and Plan EVA BUTLER [facility] Feb 08, 2025 21:31
[2025-02-08] MEDS: 0.9%NACL 1000ML 1,000 ML IV ONE (21:42)
--- NOTE | 2025-02-08 22:25 | HMCIMG ---
EXAM: CR Chest, 1 View. CLINICAL HISTORY: CHEST PAIN COMPARISON: None provided. FINDINGS: LUNGS: There is no mass, infiltrate, or acute pulmonary abnormality. PLEURAL SPACES: No pleural effusion or pneumothorax. MEDIASTINUM: Cardiac size and mediastinal contours within normal limits. BONES: No acute osseous abnormality. IMPRESSION: No acute cardiopulmonary pathology is evident. /[place]
[2025-02-08 22:53] LABS: ADD UA MICROSCOPIC YES; APPEARANCE,URINE CLEAR (CLEAR); GLUCOSE, URINE (UA) >=1000 mg/dL (NEGATIVE); LEUKOCYTE ESTERASE ,URINE NEGATIVE Leu/uL (NEGATIVE); NITRATE,URINE NEGATIVE (NEGATIVE); OCCULT BLOOD,URINE NEGATIVE (NEGATIVE)
[2025-02-08 22:54] LABS: SQUAMOUS EPITHELIAL CELL,UR RARE /HPF (0-2)
[2025-02-08 23:05] LABS: COVID19 (SARS ANTIGEN RAPID) PRESUMPTIVE NEGATIVE (NEGATIVE)
[2025-02-08 23:14] LABS: RAPID GROUP A STREP positive (NEGATIVE)
[2025-02-08] MEDS ORDERED: PENI500T2 PO (23:23)
[2025-02-08 23:56] LABS: INFLUENZA TYPE A Negative For Type A (NEGATIVE); INFLUENZA TYPE B Negative For Type B (NEGATIVE)
[2025-02-09 00:02] VITALS: BP 104/68; PULSE 60; RESP 18; TEMP 98.4; O2SAT 99
== END 2025-02-09 00:08 | disposition home or self-care (01) ==
LOC: EDH 19:35
DX: R07.89 Other chest pain (principal); F41.9 Anxiety disorder, unspecified; J02.0 Streptococcal pharyngitis; E11.9 Type 2 diabetes mellitus without complications; Z20.822 Contact with and (suspected) exposure to COVID-19
CPT/HCPCS: 99285; 96365; 71045; 96361 ×2; 96375; 87426; 82550; 84484 ×2; 80048; 83880; 85025; 87880; 87804 ×2; 81001; 81025; 36415; 93005; J7030; J0696; J2470